=== PATIENT | male | born 1990 | race Caucasian/White ===

== ENCOUNTER 2017-04-16 21:41 | Emergency (ER) | payer OTHER ==
[~2017-04-16] VITALS: Wt 87.5 kg
[2017-04-16] MEDS ORDERED: CEFTRIAXONE 250 MG INJ IM ONE (22:30)
[2017-04-16] MEDS ORDERED: AZITHROMYCIN 250 MG TAB PO ONE (22:30)
[2017-04-16] MEDS ORDERED: CLOT30CR24 TOP (22:57)
--- NOTE | 2017-04-16 23:02 | ERD ---
ER Documentation Chief Complaint Date/Time DATE: 04/16/17 TIME: 22:59 Chief Complaint Burning and itching penile area HPI 28-year-old male presents here in emergency department for complaints of burning sensation and itching of the tip of pain only area that started 2 days ago. Patient had a new sexual partner that started 2 weeks ago, does not use any protection. Patient denies any pale discharge. Patient concerned possible STD. Patient denies any abdominal pain. patient denies hematuria or dysuria. ROS All systems reviewed and are negative except as per history of present illness. Medications Home Meds Active Scripts Clotrimazole* (Clotrimazole* AF) 1% - 30 Gm Cream.gm., 1 APPLIC TOP BID for 7 Days, TUB Prov:BERTHA LEACH NP 04/16/17 Allergies Allergies: Coded Allergies: No Known Allergy (Unverified , 10/17/11) PMhx/Soc History of Surgery: No Anesthesia Reaction: No Hx Neurological Disorder: No Hx Respiratory Disorders: No Hx Cardiac Disorders: No Hx Psychiatric Problems: No Hx Miscellaneous Medical Probl: Yes (DENIES MEDICAL PROBLEMS) Hx Alcohol Use: No Hx Substance Use: No Hx Tobacco Use: No Smoking Status: Never smoker FmHx Family History: No coronary disease, No diabetes, No other Physical Exam Vitals Vital Signs Date Time Temp Pulse Resp B/P Pulse Ox O2 Delivery O2 Flow Rate FiO2 04/16/17 21:52 98.3 87 20 133/78 97 Physical Exam GENERAL: The patient is well developed and appropriate for usual state of health, in no apparent distress. CHEST: Clear to auscultation bilaterally. There are no rales, wheezes or rhonchi. HEART: Regular rate and rhythm. No murmurs, clicks, rubs or gallops. No S3 or S4. ABDOMEN: Soft, nontender and nondistended. Good bowel sounds. No rebound or guarding. No gross peritonitis. No gross organomegaly or masses. No Shah sign or McBurney point tenderness. BACK: No midline or flank tenderness. EXTREMITIES: Equal pulses bilaterally. There is no peripheral clubbing, cyanosis or edema. No focal swelling or erythema. Full range of motion. Grossly neurovascularly intact. NEURO: Alert and oriented. Cranial nerves 2-12 intact. Motor strength in all 4 extremities with 5/5 strength. Sensation grossly intact. Normal speech and gait. SKIN: There is no apparent rash or petechia. The skin is warm and dry. HEMATOLOGIC AND LYMPHATIC: There is no evidence of excessive bruising or lymphedema. No gross cervical, axillary, or inguinal lymphadenopathy. : Noted erythema on the tip of the penile area, nondistended. No scrotal redness, no scrotal tenderness or swelling. No other lesions noted. Results 24 hrs Current Medications Medications (Trade) Dose Ordered Sig/Ryan Route PRN Reason Start Time Stop Time Status Last Admin Dose Admin Ceftriaxone Sodium (Rocephin) 250 mg ONCE ONCE IM 04/16/17 22:30 04/16/17 22:31 DC Azithromycin (Zithromax) 1,000 mg ONCE ONCE PO 04/16/17 22:30 04/16/17 22:31 DC Azithromycin and Rocephin was given here in emergency department for possible STD exposure. Procedures/MDM Medical decision making: Patient's symptoms most likely consistent with candidal balanitis. No symptoms of any cellulitis. Patient may be exposed to STD , was treated with Rocephin and azithromycin for possible STDs, urine was sent for GC and chlamydia. No suspicion for urinary tract infection. Patient does not have hematuria or dysuria. Patient does not does not pain or abdominal pain. Patient does not have any symptoms of sepsis at this time. Patient appears well sitting stable. Patient was given for clotrimazole 1% cream, and is to do good penile hygiene. Patient was advised to do safe sex practices, use condom. Patient is advised to return to emergency department for any worsening symptoms. Departure Diagnosis: Primary Impression: Balanitis Additional Impression: Possible exposure to STD Condition: Stable Patient Instructions: Understanding Stephanie Foster CARLA MAE T. NP Apr 16, 2017 23:02
[2017-04-16 23:28] VITALS: BP 128/90; PULSE 72; RESP 18; TEMP 98
== END 2017-04-16 23:29 | disposition home or self-care (01) ==
LOC: FTE 21:41
DX: N48.1 Balanitis (principal); Z20.2 Contact with and (suspected) exposure to infections with a predominantly sexual mode of transmission
CPT/HCPCS: 87591; J0696; Z7610; 96372